=== PATIENT | male | born 1935 | race Caucasian/White ===

== ENCOUNTER 2017-12-13 10:07 | Outpatient (CLI) ==
--- NOTE | 2017-12-13 11:21 | DI ---
EXAM: Two views of the chest. History: Bronchitis. Findings: Heart size is upper limits of normal. Pacer device is seen in place. Left lower lung opa city. No appreciable pleural fluid and no pneumothorax. Vascular stent seen on the left. No acute osseous abnormalities. Impression: Left lower lung opacity could represent scarring, subsegmental atelectasis or prominent pericardial fat pad. Lung nodule is not excluded. Please correlate with old chest radiographs if th ey are available. If no old chest radiographs are available for comparison then recommend further ev aluation with chest CT.
== END 2017-12-13 10:08 | disposition home or self-care (01) ==
LOC: RAD 10:07
PROVIDERS: ATTEND Family Medicine
DX: J40 Bronchitis, not specified as acute or chronic (principal)